=== PATIENT | female | born 1965 | race Caucasian/White ===

== ENCOUNTER 2017-05-06 14:47 | Outpatient (CLI) | payer OTHER ==
--- NOTE | 2017-05-06 18:26 | XRay Report ---
FINAL REPORT PROCEDURE: XR KNEE 4+V RT TECHNIQUE: Right knee, four views HISTORY: RIGHT KNEE PAIN COMPARISON: No prior studies are available for comparison. FINDINGS: No fracture or joint dislocation is seen. There is mild medial joint space narrowing. No joint effusion. IMPRESSION: No acute fracture or dislocation is seen
--- NOTE | 2017-05-06 18:27 | XRay Report ---
FINAL REPORT PROCEDURE: XR HIP 2-3V RT TECHNIQUE: RIGHT hip radiographs, 2 views each, including AP view of the pelvis. HISTORY: RIGHT HIP PAIN COMPARISON: No prior studies are available for comparison. FINDINGS: No acute fracture or dislocation. No focal osseous lesions are seen. The hip joints are symmetric in appearance. IMPRESSION: No acute osseous abnormality is identified
== END 2017-05-06 14:48 | disposition home or self-care (01) ==
LOC: SPVIMAG 14:47
PROVIDERS: ATTEND Family Medicine
DX: M25.561 Pain in right knee (principal); M25.551 Pain in right hip

== ENCOUNTER 2017-06-23 12:33 | Outpatient (CLI) | payer OTHER ==
--- NOTE | 2017-06-24 00:07 | XRay Report ---
FINAL REPORT EXAM: XR HIP 2-3V LT HISTORY: LEFT HIP PAIN COMPARISON: None available. FINDINGS: Two views of the left hip obtained. Left hip joint space preserved. Visualized pelvic ring is intact. No acute fracture dislocation. IMPRESSION: No focal bony abnormality.
--- NOTE | 2017-06-24 00:09 | XRay Report ---
FINAL REPORT EXAM: XR KNEE 4+V LT HISTORY: LEFT KNEE PAIN COMPARISON: None available. FINDINGS: Four views of the left knee obtained. Mild hypertrophic spurring of the medial femoral condyle. Bony structures are intact. Joint spaces are preserved. No acute fracture dislocation. IMPRESSION: Minimal degenerative changes. No acute bony findings.
== END 2017-06-23 12:34 | disposition home or self-care (01) ==
LOC: SPVIMAG 12:33
PROVIDERS: ATTEND Family Medicine
DX: M17.12 Unilateral primary osteoarthritis, left knee (principal); M25.552 Pain in left hip